=== PATIENT | female | born 1965 | race Caucasian/White ===

== ENCOUNTER → 2017-05-29 | Outpatient (CLI) | payer OTHER ==
[~2017-05-29] MED LIST: PANT40TA PO; SERT1TAB71 PO; SERT25TA PO
== END | disposition home or self-care (01) ==
LOC: C.PAPS 16:07
PROVIDERS: ATTEND Obstetrics & Gynecology
DX: Z12.4 Encounter for screening for malignant neoplasm of cervix (principal)

== ENCOUNTER → 2017-10-07 | Outpatient (CLI) | payer OTHER, BC ==
--- NOTE | 2017-10-07 13:01 | DIAGNOSTIC IMAGING REPORT ---
MRI OF THE RIGHT SHOULDER CLINICAL HISTORY: Right shoulder pain. Recent injury. COMPARISON STUDY: Radiographs of the right shoulder dated 10/01/2017. TECHNIQUE: MRI of the right shoulder was performed utilizing various T1 and T2 weighted sequences in the axial, sagittal, coronal planes. IV contrast was not administered for this examination. The examination is modestly degraded by motion artifact. FINDINGS: Rotator cuff: There is tendinopathy of the supraspinatous tendon. Mild partial thickness tearing is seen anteriorly and along the bursal surface. The majority of the fibers are intact. The infraspinatus tendon is preserved. The teres minor and subscapularis tendons are intact. There is no subacromial or subdeltoid bursal fluid. Minimal productive change is seen at the acromioclavicular joint. Biceps tendon: The long head of the biceps tendon is normal in signal intensity and located within the bicipital groove. The anchor is maintained. Labrum: Grossly intact. Shoulder joint: There is no joint effusion. The articular cartilage over the glenoid is well maintained. Normal marrow signal intensity is preserved of the visualized osseous structures. Musculature and soft tissues: The musculature of the shoulder is normal in bulk and signal intensity. No atrophy is seen. IMPRESSION: 1. No bony abnormality is identified. 2. There is tendinopathy of the supraspinatus tendon. Mild partial-thickness tearing is seen anteriorly and along the bursal surface. No full thickness tear is seen. 3. The remainder of the rotator cuff is intact. The long head of the biceps tendon is normal in appearance. Electronically signed by: Frederick Duncan M.D. 10/07/2017 1:00 PM Dictated Date/Time: 10/07/2017 12:53 PM
== END | disposition home or self-care (01) ==
LOC: C.MRIBC 11:36
PROVIDERS: ATTEND Orthopaedic Surgery
DX: M25.511 Pain in right shoulder (principal); M75.91 Shoulder lesion, unspecified, right shoulder

== ENCOUNTER 2025-03-15 10:13 | Observation (INO) ==
[2025-03-15] MEDS: SODIUM CHLORIDE 0.9% 1,000 ML IV SCH ×2 (11:03→17:52)
[2025-03-15] MEDS: cefTRIAXone SODIUM 2,000 MG/50 ML BAG IV STA (11:03)
[2025-03-15 11:14] LABS: Hematocrit (blood only) 36.5 % (37.0-47.0); Hemoglobin 12.3 g/dl (12.0-16.0); Immature Granulocytes # (auto) 0.07 K/uL (0.01-0.20); Immature Granulocytes % (auto) 0.4 %; Mean Corpuscular Hemoglobin 28.0 pg (25.0-34.0); Mean Corpuscular Volume 83.1 fL (80.0-100.0); Platelet Count 189 K/uL (130-400); RDW Standard Deviation 42.6 fL (36.4-46.3); Red Blood Count 4.39 M/uL (4.20-5.40); White Blood Count 15.66 K/ul (4.8-10.8)
[2025-03-15 11:18] LABS: Appearance Urine Clear (Clear); Bacteria Urine Automated 4+ (None Seen); Cast Urine Automated 0-2 /lpf (0-2); Epithelial Cell Urine Auto 0-2 /hpf (0-2); Glucose Urine UA Negative (Negative); RBC Urine Automated >20 /hpf (0-2); WBC Urine Automated 21-50 /hpf (0-5)
--- NOTE | 2025-03-15 11:23 | Emergency Department Note ---
Impression & Plan Sepsis, Pyelonephritis, Hypomagnesemia, TERESA (acute kidney injury) ED Provider Note NAME: KOMAL MACDONALD AGE: 59 SEX: F : 1965 ARRIVES VIA: Walk-In INFORMANT: Patient ED PROVIDER(S): Greg Resendez MD CHIEF COMPLAINT: Body aches, feverishness, burning with urination, referred PLAN: Disposition: Admit MEDICAL DECISION MAKING: The patient is a pleasant 59-year-old woman with a past medical history of hypertension, hyperlipidemia, GERD, anxiety who presents to the emergency department via walk-in, referred by urgent care for concern for urinary infection with low blood pressure. Patient reports having chills and sweats as well as headache, body aches and burning with urination. She denies cough, congestion, chest pain or shortness of breath. On evaluation the patient is fatigued appearing but no acute distress, afebrile with heart rate in the 130s and blood pressure 90s/60s and vital signs otherwise stable. She appears clinically dry. She exhibits mild lower abdominal discomfort without discrete tenderness. There is no guarding or rebound. EKG demonstrates sinus tachycardia without overt acute ischemia. Chest x-ray negative for acute cardiopulmonary process per my preliminary independent interpretation. WBC 15.6 K with neutrophilia but no left shift. Hemoglobin within normal limits. Platelets within normal limits. Chemistry without metabolic acidosis. Creatinine 1.8, consistent with patient's clinically dry appearance consistent with TERESA. Magnesium 1.4 with IV repletion provided. LFTs unremarkable. Initial high styptic troponin 7.3, within normal limits. Lipase is normal. Procalcitonin is elevated at 4.2 consistent with concern for sepsis secondary to urinary infection. UA is consistent with infection with positive nitrites, leuk esterase, WBCs and 4+ bacteria. CT of the head was negative for acute abnormalities. CT of the abdomen pelvis was performed and demonstrates mild stranding adjacent to the right kidney consistent with pyelonephritis given patient's presentation.. The patient was treated with IV fluid hydration with 30 cc/KG of normal saline with subsequent improvement in heart rate and stable blood pressure. Empiric antibiotic treatment issue with ceftriaxone as available records showed no history of resistant organisms. IV dexamethasone, diphenhydramine and Compazine administered for component of migraine. Patient agrees with plan for admission for further management. [facility] who will [facility] the patient for [facility]. Further management per admitting team. Triage Nursing notes reviewed and agree them. Prior/external medical records reviewed Vital Signs: reviewed Differential diagnosis: Renal colic, UTI, appendicitis, diverticulitis, mesenteric ischemia, aortic pathology, infections, inflammatory bowel disease, PUD, biliary pathology, as well as other pathologies. ER treatment provided: See below. Diagnostics interpreted by me: ECG: Sinus tachycardia, 119 bpm, no ectopy, no overt ST elevation or depression, QTc 413, QRS 72. Cardiac Monitoring: An order for continuous cardiac monitoring was placed and demonstrated sinus tachycardia, 119 bpm, no ectopy. Laboratory studies: See below Imaging studies: See below Consultation(s): [facility] who will [facility] the [facility] for [facility]. HPI: Per MDM. ROS: See above HPI for pertinent positives & negatives. A total of 10 systems reviewed and were otherwise negative. VITALS:See Below PHYSICAL EXAMINATION: GENERAL: Awake, alert, uncomfortable-appearing, in no distress, BMI 31.5. HENT: Normocephalic, atraumatic. Oropharynx with dry mucous membranes and otherwise unremarkable. EYES: Normal conjunctiva. Sclera non-icteric. NECK: Supple. No nuchal rigidity. FROM. No JVD. RESPIRATORY: Clear to auscultation. CARDIAC: Tachycardic rate, normal rhythm. Extremities warm and well perfused. Pulses equal. ABDOMEN: Soft, non-distended. Mild lower abdominal discomfort without discrete tenderness. There is no guarding or rebound. MUSCULOSKELETAL: Chest examination reveals no tenderness. The back is symmetrical on inspection without obvious abnormality. There is no CVA tenderness to palpation. No joint edema. LOWER EXTREMITIES: Calves are equal size bilaterally and non-tender. No edema. No discoloration. NEURO: Normal sensorium. No sensory or motor deficits noted. SKIN: No rash or jaundice noted. 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 Verified 03/15/25 14:17 Antibiotics) STOMACH EMPTY TEST Allergy Unknown WHEN ATE Uncoded 03/15/25 14:17 EGG SANDWICH RASH ON STOMACH Home Meds Home Medications Medication Instructions Recorded Confirmed atorvastatin 20 mg tablet 20 mg PO DAILY 06/21/20 03/15/25 [id number] 1 cap PO Q4 PRN Headache 06/21/20 03/15/25 50 mg-300 mg-40 mg capsule lisinopril 5 mg tablet 5 mg PO DAILY 06/21/20 03/15/25 sertraline 25 mg tablet 25 mg PO DAILY 06/21/20 03/15/25 sertraline 50 mg tablet 50 mg PO DAILY 06/21/20 03/15/25 allopurinol 100 mg tablet 200 mg PO DAILY 03/15/25 03/15/25 aspirin 81 mg tablet,delayed 81 mg PO DAILY 03/15/25 03/15/25 release cholecalciferol (vitamin D3) 25 25 mcg PO DAILY 03/15/25 03/15/25 mcg (1,000 unit) tablet (Vitamin D3) cyanocobalamin (vitamin B-12) 1,000 mcg PO DAILY 03/15/25 03/15/25 1,000 mcg tablet lorazepam 0.5 mg tablet 0.5 mg PO DAILY PRN Anxiety 03/15/25 03/15/25 pantoprazole 40 mg tablet,delayed 40 mg PO DAILYBB 03/15/25 03/15/25 release pregabalin 75 mg capsule 75 mg PO BID 03/15/25 03/15/25 Results & Data (ED) Vital Signs Vital Signs - 24 hr 03/15/25 10:25 03/15/25 10:42 03/15/25 10:54 Temperature 37.3 C Temperature Source Oral Pulse Rate 133 H 124 H 111 H Pulse Rate [Apical] Pulse Rate from SpO2 Sensor 123 H 121 H Respiratory Rate 20 22 21 Respiratory Effort / Characteristics Non-Labored Spontaneous Respiratory Depth Normal Respiratory Pattern Regular Blood Pressure 93/64 L Blood Pressure [Right Arm] Blood Pressure Mean 73 Blood Pressure Mean [Right Arm] Blood Pressure Position [Right Arm] Pulse Oximetry 97 94 95 Oxygen Delivery Method Room Air Sepsis Recent Fever Within 48 Hours Yes Sepsis New/Unexplained Change in Mental Status N/A Sepsis Action Taken by Nursing Physician Notified 03/15/25 11:06 03/15/25 11:08 03/15/25 11:08 Temperature Temperature Source Pulse Rate 118 H Pulse Rate [Apical] 112 H Pulse Rate from SpO2 Sensor 118 H Respiratory Rate 16 23 Respiratory Effort / Characteristics Non-Labored Spontaneous Respiratory Depth Normal Respiratory Pattern Regular Blood Pressure 89/71 L Blood Pressure [Right Arm] 89/71 L Blood Pressure Mean 75 Blood Pressure Mean [Right Arm] 77 Blood Pressure Position [Right Arm] Sitting Pulse Oximetry 98 97 Oxygen Delivery Method Room Air Sepsis Recent Fever Within 48 Hours Sepsis New/Unexplained Change in Mental Status Sepsis Action Taken by Nursing 03/15/25 11:13 03/15/25 11:18 03/15/25 11:30 Temperature Temperature Source Pulse Rate 116 H 113 H Pulse Rate [Apical] 114 H Pulse Rate from SpO2 Sensor 112 H Respiratory Rate 22 19 Respiratory Effort / Characteristics Non-Labored Spontaneous Respiratory Depth Normal Respiratory Pattern Regular Blood Pressure Blood Pressure [Right Arm] 125/80 Blood Pressure Mean Blood Pressure Mean [Right Arm] 95 Blood Pressure Position [Right Arm] Lying Pulse Oximetry 99 100 Oxygen Delivery Method Room Air Sepsis Recent Fever Within 48 Hours Sepsis New/Unexplained Change in Mental Status Sepsis Action Taken by Nursing 03/15/25 11:30 03/15/25 11:33 03/15/25 11:48 Temperature Temperature Source Pulse Rate 112 H 112 H Pulse Rate [Apical] Pulse Rate from SpO2 Sensor 113 H 112 H Respiratory Rate 16 Respiratory Effort / Characteristics Respiratory Depth Respiratory Pattern Blood Pressure 125/80 Blood Pressure [Right Arm] Blood Pressure Mean 94 Blood Pressure Mean [Right Arm] Blood Pressure Position [Right Arm] Pulse Oximetry 97 98 Oxygen Delivery Method Sepsis Recent Fever Within 48 Hours Sepsis New/Unexplained Change in Mental Status Sepsis Action Taken by Nursing 03/15/25 12:03 03/15/25 12:21 03/15/25 12:25 Temperature Temperature Source Pulse Rate 112 H 107 H Pulse Rate [Apical] Pulse Rate from SpO2 Sensor 111 H 107 H Respiratory Rate 22 23 Respiratory Effort / Characteristics Respiratory Depth Respiratory Pattern Blood Pressure 100/62 Blood Pressure [Right Arm] Blood Pressure Mean 74 Blood Pressure Mean [Right Arm] Blood Pressure Position [Right Arm] Pulse Oximetry 97 95 Oxygen Delivery Method Sepsis Recent Fever Within 48 Hours Sepsis New/Unexplained Change in Mental Status Sepsis Action Taken by Nursing 03/15/25 12:30 03/15/25 12:30 03/15/25 12:36 Temperature Temperature Source Pulse Rate 108 H Pulse Rate [Apical] 112 H Pulse Rate from SpO2 Sensor 108 H Respiratory Rate 24 18 Respiratory Effort / Characteristics Non-Labored Spontaneous Respiratory Depth Normal Respiratory Pattern Regular Blood Pressure 98/60 L Blood Pressure [Right Arm] 98/60 L Blood Pressure Mean 80 Blood Pressure Mean [Right Arm] 72 Blood Pressure Position [Right Arm] Lying Pulse Oximetry 95 97 Oxygen Delivery Method Room Air Sepsis Recent Fever Within 48 Hours Sepsis New/Unexplained Change in Mental Status Sepsis Action Taken by Nursing 03/15/25 12:38 03/15/25 12:57 03/15/25 13:00 Temperature Temperature Source Pulse Rate 110 H 109 H Pulse Rate [Apical] Pulse Rate from SpO2 Sensor 110 H 109 H Respiratory Rate 23 17 Respiratory Effort / Characteristics Respiratory Depth Respiratory Pattern Blood Pressure 108/73 98/79 L 102/60 Blood Pressure [Right Arm] Blood Pressure Mean 85 85 78 Blood Pressure Mean [Right Arm] Blood Pressure Position [Right Arm] Pulse Oximetry 96 96 Oxygen Delivery Method Sepsis Recent Fever Within 48 Hours Sepsis New/Unexplained Change in Mental Status Sepsis Action Taken by Nursing 03/15/25 13:03 03/15/25 13:18 Temperature Temperature Source Pulse Rate 107 H 105 H Pulse Rate [Apical] Pulse Rate from SpO2 Sensor 107 H 105 H Respiratory Rate 22 21 Respiratory Effort / Characteristics Respiratory Depth Respiratory Pattern Blood Pressure 102/60 106/73 Blood Pressure [Right Arm] Blood Pressure Mean 74 84 Blood Pressure Mean [Right Arm] Blood Pressure Position [Right Arm] Pulse Oximetry 94 94 Oxygen Delivery Method Sepsis Recent Fever Within 48 Hours Sepsis New/Unexplained Change in Mental Status Sepsis Action Taken by Nursing Laboratory Data Attestation: I reviewed the patient's lab results. 03/15/25 10:45 03/15/25 10:45 Lab Results 03/15/25 Range/Units 10:45 WBC 15.66 H (4.8-10.8) K/ul RBC 4.39 (4.20-5.40) M/uL Hgb 12.3 (12.0-16.0) g/dl Hct 36.5 L (37.0-47.0) % MCV 83.1 (80.0-100.0) fL MCH 28.0 (25.0-34.0) pg MCHC 33.7 (32.0-36.0) g/dL RDW Std Deviation 42.6 (36.4-46.3) fL RDW Coeff of Noemí 14.0 (11.5-14.5) % Plt Count 189 (130-400) K/uL MPV 10.9 (9.4-12.4) fL Immature Gran % (Auto) 0.4 % Neut % (Auto) 83.0 % Lymph % (Auto) 8.6 % [place] % (Auto) 7.3 % Eos % (Auto) 0.3 % Baso % (Auto) 0.4 % Neut # (Auto) 12.99 H (1.40-6.50) K/uL Lymph # (Auto) 1.35 (1.20-3.40) K/uL [place] # (Auto) 1.15 H (0.11-0.59) K/uL Eos # (Auto) 0.04 (0.00-0.50) K/uL Baso # (Auto) 0.06 (0.00-0.20) K/uL Immature Gran # (Auto) 0.07 (0.01-0.20) K/uL Sodium 138 (136-145) mmol/L Potassium 3.9 (3.5-5.1) mmol/L Chloride 105 (98-107) mmol/L Carbon Dioxide 24 (21-32) mmol/L Anion Gap 9 (3-11) BUN 25 H (6-23) mg/dl Creatinine 1.83 H (0.6-1.2) mg/dl Est Cr Clr Drug Dosing 26.7 ml/min eGFR 31.43 BUN/Creatinine Ratio 13.7 (10-20) Glucose 112 H (70-99(Fasting)) mg/dl Lactate 1.4 (0.4-2.0) mmol/L Calcium 9.1 (8.6-10.3) mg/dl Phosphorus 2.1 L (2.5-4.9) mg/dl Magnesium 1.4 L (1.7-2.4) mg/dl Total Bilirubin 0.9 (0.2-1.0) mg/dl Direct Bilirubin 0.2 (0-0.2) mg/dl AST 20 (13-39) U/L ALT 14 (7-52) U/L Alkaline Phosphatase 100 (34-104) U/L Troponin I High Sens 7.3 (0-14) pg/ml Total Protein 7.1 (6.0-8.3) gm/dl Albumin 4.0 (3.4-5.0) gm/dl Lipase 40 (11-82) U/L Procalcitonin 4.20 H (0-0.5) ng/ml Urine Color Dark Yellow Urine Appearance Clear (Clear) Urine pH 5.5 (4.5-7.5) Ur Specific [place] 1.015 (1.000-1.030) Urine Protein 3+ H (Negative) Urine Glucose (UA) Negative (Negative) Urine Ketones Negative (Negative) Urine Blood 3+ H (Negative) Urine Nitrite Positive A (Negative) Urine Bilirubin 1+ H (Negative) Urine Urobilinogen Negative (Negative) Ur Leukocyte Esterase 2+ H (Negative) Urine WBC (Auto) 21-50 H (0-5) /hpf Urine RBC (Auto) >20 H (0-2) /hpf U Hyaline Cast (Auto) 0-2 (0-2) /lpf U Epithel Cells (Auto) 0-2 (0-2) /hpf Urine Bacteria (Auto) 4+ H (None Seen) Urine Comment Administered Medications Heparin Sodium (Porcine) (Heparin Sod 5,000 Unit/0.5 Ml Vial) 5,000 units SQ Q8 SHAMA Stop: 04/14/25 21:59 Last Admin: 03/15/25 21:04 Dose: 5,000 units Documented By: KDL Ertapenem (Invanz 500mg) 500 mg in 5 mls @ 2 mls/min IV Q24H SHAMA Stop: 03/22/25 15:59 Last Admin: 03/15/25 17:15 Dose: 2 mls/min Documented By: AVSantino Sodium Chloride (Nss) 1,000 mls @ 125 mls/hr IV .Q8H SHAMA Stop: 03/18/25 17:06 Last Admin: 03/15/25 17:52 Dose: 125 mls/hr Documented By: KRISTIN Melatonin (Melatonin 3 Mg Tab) 6 mg PO HS PRN PRN Reason: Sleep Stop: 04/14/25 22:01 Last Admin: 03/15/25 22:06 Dose: 6 mg Documented By: FARHAD Pregabalin (Pregabalin 75 Mg Cap) 75 mg PO BID SHAMA Stop: 04/14/25 20:59 Last Admin: 03/15/25 21:04 Dose: 75 mg Documented By: FARHAD Discontinued Medications Dexamethasone Sodium Phosphate (DexamethasonePf 10 Mg/Ml Vial) 10 mg IV NOW ONE Stop: 03/15/25 11:23 Last Admin: 03/15/25 11:38 Dose: 10 mg Documented By: DIOGO Diphenhydramine HCl (Diphenhydramine 50 Mg/Ml Vial) 25 mg IV NOW STA Stop: 03/15/25 11:24 Last Admin: 03/15/25 11:38 Dose: 25 mg Documented By: DIOGO Sodium Chloride (Nss) 1,000 mls @ 999 mls/hr IV .Q1H1M SHAMA Stop: 03/15/25 12:45 Last Infusion: 03/15/25 16:01 Dose: Infused Documented By: Admin: 03/15/25 14:58 Dose: 999 mls/hr Documented By: Infusion: 03/15/25 12:04 Dose: Infused Documented By: Admin: 03/15/25 11:03 Dose: 999 mls/hr Documented By: FAITH Ceftriaxone Sodium (Rocephin) 2,000 mg in 50 mls @ 100 mls/hr IV NOW STA Stop: 03/15/25 11:06 Last Infusion: 03/15/25 12:29 Dose: Infused Documented By: Admin: 03/15/25 11:03 Dose: 100 mls/hr Documented By: FAITH Acetaminophen (Ofirmev) 1,000 mg in 100 mls @ 400 mls/hr IV NOW STA Stop: 03/15/25 11:36 Last Infusion: 03/15/25 12:29 Dose: Infused Documented By: Admin: 03/15/25 11:38 Dose: 400 mls/hr Documented By: DIOGO Prochlorperazine (Compazine) 1 mls @ 1 mls/min IV ONE ONE Stop: 03/15/25 11:24 Last Admin: 03/15/25 11:38 Dose: 1 mls/min Documented By: DIOGO Magnesium Sulfate/Dextrose (Magnesium Sulfate / D5w) 1 gm in 100 mls @ 100 mls/hr IV Q1H SHAMA Stop: 03/15/25 14:30 Last Infusion: 03/15/25 16:01 Dose: Infused Documented By: Admin: 03/15/25 14:58 Dose: 100 mls/hr Documented By: Infusion: 03/15/25 14:06 Dose: Infused Documented By: Admin: 03/15/25 13:06 Dose: 100 mls/hr Documented By: DIOGO Magnesium Sulfate/Dextrose (Magnesium Sulfate / D5w) 1 gm in 100 mls @ 50 mls/hr IV ONE ONE Stop: 03/15/25 19:06 Last Infusion: 03/15/25 20:30 Dose: Infused Documented By: Admin: 03/15/25 17:51 Dose: 50 mls/hr Documented By: NA Sodium Phosphate 21 mmol/ (Sodium Chloride) 507 mls @ 88 mls/hr IV ONE ONE Stop: 03/15/25 23:00 Last Admin: 03/15/25 19:43 Dose: Not Given Documented By: FARHAD Potassium Phosphate 15 mmol/ (Sodium Chloride) 255 mls @ 88 mls/hr IV ONE ONE Stop: 03/15/25 22:38 Last Admin: 03/15/25 20:32 Dose: 88 mls/hr Documented By: FARHAD Imaging Data Radiologist's Impression: Head CT 03/15/25 11:23 CT head/brain wo con CLINICAL HISTORY: sepsis, uriarte. TECHNIQUE: Multiple axial CT images of the head were obtained without contrast. A dose lowering technique was utilized adhering to the principles of ALARA. COMPARISON: None FINDINGS: No intracranial hemorrhage seen. No mass effect, midline shift, or hydrocephalus. No skull fracture seen. Visualized paranasal sinuses and mastoid air cells are clear. IMPRESSION: No acute findings. ACT 112: Negative or not required by law. The above report was generated using voice recognition software. It may contain grammatical, syntax or spelling errors. Electronically signed by: Rubin Gonsalez M.D. 03/15/2025 12:59 PM Abdomen/Pelvis CT 03/15/25 12:[address] WITHOUT CONTRAST CT DOSE: 1842.37 mGy.cm HISTORY: sepsis, uti TECHNIQUE: Multiaxial CT images of the abdomen and pelvis were performed without contrast. A dose lowering technique was utilized adhering to the principles of ALARA. COMPARISON STUDY: None FINDINGS: ABDOMEN: Liver, gallbladder, spleen, pancreas, and adrenal glands have an unremarkable noncontrast appearance. There is a small cyst at the right mid kidney. There is no hydronephrosis bilaterally. No renal or ureteral calculi seen. There is mild stranding adjacent to the right kidney. No abdominal aortic aneurysm. Pelvis: Uterus and adnexa are grossly unremarkable. Urinary bladder is nondistended. There is mild sigmoid diverticulosis. No acute diverticulitis. No bowel inflammation or obstruction. Normal appendix. No free fluid, free air, or abscess. No enlarged adenopathy. Osseous structures: No acute osseous findings. IMPRESSION: 1. Mild stranding adjacent to the right kidney can be normal variation or could represent an early right pyelonephritis. 2. No other acute findings seen. Otherwise as described. ACT 112: Negative or not required by law. The above report was generated using voice recognition software. It may contain grammatical, syntax or spelling errors. Electronically signed by: Rubin Gonsalez M.D. 03/15/2025 1:10 PM Discharge Plan Visit Data Chief Complaint: Referred by Doctor Stated Complaint: REFFERED BY [facility] Provider: Greg Resendez Discharge Problem: Sepsis, Pyelonephritis, Hypomagnesemia, TERESA (acute kidney injury) Patient Disposition: Admitted As Inpatient Condition: Serious Discharge Instructions Interventions: ED Discharge Assessment Last Done: 03/15/25 17:52 Discharge Problem: Sepsis Qualifiers: Sepsis type: sepsis due to unspecified organism Sepsis acute organ dysfunction status: with acute organ dysfunction Severe sepsis acute organ dysfunction type: acute renal failure Acute renal failure type: unspecified Severe sepsis shock status: without septic shock Qualified Code(s): A41.9 - Sepsis, unspecified organism
--- NOTE | 2025-03-15 11:25 | XRay Report ---
XR chest 1V portable CLINICAL HISTORY: Sepsis COMPARISON STUDY: 06/21/2020 FINDINGS: Heart size and pulmonary vasculature are normal. No consolidation or pleural effusion. No p neumothorax. IMPRESSION: No acute findings. ACT 112: Negative or not required by law. Electronically signed by: Rubin Gonsalez M.D. 03/15/2025 11:23 AM
[2025-03-15 11:35] LABS: Alanine Aminotransferase 14.0 U/L (7-52); Alkaline Phosphatase 100.0 U/L (34-104); Anion Gap 9.0 (3-11); Bilirubin,Total 0.9 mg/dl (0.2-1.0); Blood Urea Nitrogen 25.0 mg/dl (6-23); Calcium 9.1 mg/dl (8.6-10.3); Carbon Dioxide 24.0 mmol/L (21-32); Chloride 105.0 mmol/L (98-107); Creatinine Clr Calc Pharmacy 26.7 ml/min; Glucose 112.0 mg/dl (70-99(Fasting)); Lipase 40.0 U/L (11-82); Magnesium 1.4 mg/dl (1.7-2.4); Potassium 3.9 mmol/L (3.5-5.1); Sodium 138.0 mmol/L (136-145); Total Protein 7.1 gm/dl (6.0-8.3)
[2025-03-15] MEDS: PROCHLORPERAZINE 1 ML IV ONE (11:38)
[2025-03-15] MEDS: diphenhydrAMINE 50 MG/ML VIAL IV STA (11:38)
[2025-03-15] MEDS: dexAMETHasone**PF** 10 MG/ML VIAL IV ONE (11:38)
[2025-03-15] MEDS: ACETAMINOPHEN 1,000 MG/100 ML VIAL IV STA (11:38)
--- NOTE | 2025-03-15 13:01 | CT Scan Report ---
CT head/brain wo con CLINICAL HISTORY: sepsis, uriarte. TECHNIQUE: Multiple axial CT images of the head were obtained without contrast. A dose lowering tech nique was utilized adhering to the principles of ALARA. COMPARISON: None FINDINGS: No intracranial hemorrhage seen. No mass effect, midline shift, or hydrocephalus. No skull fracture seen. Visualized paranasal sinuses and mastoid air cells are clear. IMPRESSION: No acute findings. ACT 112: Negative or not required by law. The above report was generated using voice recognition software. It may contain grammatical, syntax o r spelling errors. Electronically signed by: Rubin Gonsalez M.D. 03/15/2025 12:59 PM
[2025-03-15] MEDS: MAGNESIUM SULFATE / D5W 1 GM/100 ML BAG IV SCH (13:06)
--- NOTE | 2025-03-15 13:11 | CT Scan Report ---
ABDOMEN AND PELVIS CT WITHOUT CONTRAST CT DOSE: 1842.37 mGy.cm HISTORY: sepsis, uti TECHNIQUE: Multiaxial CT images of the abdomen and pelvis were performed without contrast. A dose lo wering technique was utilized adhering to the principles of ALARA. COMPARISON STUDY: None FINDINGS: ABDOMEN: Liver, gallbladder, spleen, pancreas, and adrenal glands have an unremarkable noncontrast ap pearance. There is a small cyst at the right mid kidney. There is no hydronephrosis bilaterally. No r enal or ureteral calculi seen. There is mild stranding adjacent to the right kidney. No abdominal aor tic aneurysm. Pelvis: Uterus and adnexa are grossly unremarkable. Urinary bladder is nondistended. There is mild si gmoid diverticulosis. No acute diverticulitis. No bowel inflammation or obstruction. Normal appendix. No free fluid, free air, or abscess. No enlarged adenopathy. Osseous structures: No acute osseous findings. IMPRESSION: 1. Mild stranding adjacent to the right kidney can be normal variation or could represent an early ri ght pyelonephritis. 2. No other acute findings seen. Otherwise as described. ACT 112: Negative or not required by law. The above report was generated using voice recognition software. It may contain grammatical, syntax o r spelling errors. Electronically signed by: Rubin Gonsalez M.D. 03/15/2025 1:10 PM
--- NOTE | 2025-03-15 13:41 | Electrocardiogram Report ---
Test Reason : Blood Pressure : */* mmHG Vent. Rate : 119 BPM Atrial Rate : 119 BPM P-R Int : 130 ms QRS Dur : 72 ms QT Int : 294 ms P-R-T Axes : -21 -5 -22 degrees QTcB Int : 413 ms Sinus tachycardia Low voltage QRS Inferior infarct , age undetermined Poor R wave progression, consider anterior LA vs. lead placement vs. LVH Abnormal ECG When compared with ECG of 21-Jun-2020 21:09, Inferior infarct is now Present Nonspecific T wave abnormality, worse in Inferior leads Confirmed by Madhav Gray ([id number]) on 03/15/2025 1:41:17 PM Referred By: REFERRED SELF Confirmed By: Madhav Gray
--- NOTE | 2025-03-15 15:06 | History & Physical Report ---
Date of Service March 15, 2025 Assessment & Plan (1) Sepsis: Plan: 59-year-old female with past medical history significant for dyslipidemia, gouty arthropathy, gastroparesis, GERD, CKD stage IIIb, migraine variant, general anxiety disorder, presents with not feeling well and urinary symptoms since last Friday. Patient says since last Friday was having burning micturition, lower abdominal pain, not feeling well , fevers and chills. She has history of UTIs in the past. As she was not getting better she came to the ER today. She called PCP office and was prescribed Cipro but not picked up the medication yet. Having severe headaches, after Tylenol in the ER seems somewhat better. Has runny nose from sinusitis. No cough. No difficulty swallowing. No chest pain or shortness of breath. No nausea. Normal bowel movements. No rash. On presentation patient was tachycardic. Blood pressure soft. And mild temp spike. Currently hemodynamics improving. Sepsis Right pyelonephritis on CT scan Acute UTI On presentation tachycardic, soft blood pressure, fevers, WBC 15, procalcitonin 4.2, lactate 1.4 Received fluids and Rocephin As per [facility] urine cultures on 09/02/2023 showed E. coli which was resistant to Rocephin and cefazolin but sensitive to cefepime Urine cultures from 05/11/2024 shows pansensitive E. coli Will place on Invanz for now until final cultures available-adjust Invanz dosing per renal function Continue with IV fluids Close monitor hemodynamics Monitoring med/telemetry TERESA on CKD stage IIIb Baseline creatinine 1.3-1.6 Presented with creatinine of 1.8 Will hold lisinopril Avoid nephrotoxic agents Follow repeat labs Hypomagnesium and hypophosphatemia Will replace Will follow labs History of gouty arthropathy Continue allopurinol History of migraine On Fioricet as needed at home which will will be held for now IV Tylenol as needed Hyperlipidemia On statin Hypertension Holding lisinopril Blood pressure soft Will monitor Abnormal EKG Asymptomatic Initial troponin negative Will follow serial cardiac enzymes and repeat EKG GERD On Protonix General Anxiety disorder On Zoloft Ativan as needed DVT prophylaxis Heparin subcu Disposition Med/telemetry Full code. History of Present Illness Chief Complaint: Illness Primary Care Provider: Mio Turner MD 59-year-old female with past medical history significant for dyslipidemia, gouty arthropathy, gastroparesis, GERD, CKD stage IIIb, migraine variant, general anxiety disorder, presents with not feeling well and urinary symptoms since last Friday. Patient says since last Friday was having burning micturition, lower abdominal pain, not feeling well , fevers and chills. She has history of UTIs in the past. As she was not getting better she came to the ER today. She called PCP office and was prescribed Cipro but not picked up the medication yet. Having severe headaches, after Tylenol in the ER seems somewhat better. Has runny nose and attributes to sinuses. No cough. No difficulty swallowing. No chest pain or shortness of breath. No nausea. Normal bowel movements. No rash. On presentation patient was tachycardic. Blood pressure soft. And mild temp spike. Currently hemodynamics improving. Past medical history. As mentioned above. Past surgical history. . Colonoscopy or EGD. EGD with biopsy. EGD with endoscopic ultrasound. Gastrocnemius recession. IR biopsy. Ligation oviducts. Removal of deep implant. Renal biopsy. Social history. . No smoking. Alcohol rarely. No drug use. Family history. Maternal aunt had breast cancer in 70s. Father has COPD. Diabetes. Skin cancer. Mother has skin cancer. Brother has diabetes. Brother had cancer. Brother had Graves' disease thyroidectomy. Maternal aunt had ovarian cancer. Maternal aunt had renal failure. Maternal aunt had lung cancer. Maternal uncle had lung cancer. Allergies Allergy/AdvReac Type Severity Reaction Status Date / Time Sulfa (Sulfonamide Allergy Unknown . Verified 03/15/25 14:17 Antibiotics) STOMACH EMPTY TEST Allergy Unknown WHEN ATE Uncoded 03/15/25 14:17 EGG SANDWICH RASH ON STOMACH Home Medications Medication Instructions Recorded Confirmed Type atorvastatin 20 mg tablet 20 mg PO DAILY 06/21/20 03/15/25 History wooqasctjh-[id number]-meaqilef 1 cap PO Q4 PRN Headache 06/21/20 03/15/25 History 50 mg-300 mg-40 mg capsule lisinopril 5 mg tablet 5 mg PO DAILY 06/21/20 03/15/25 History sertraline 25 mg tablet 25 mg PO DAILY 06/21/20 03/15/25 History sertraline 50 mg tablet 50 mg PO DAILY 06/21/20 03/15/25 History allopurinol 100 mg tablet 200 mg PO DAILY 03/15/25 03/15/25 History aspirin 81 mg tablet,delayed 81 mg PO DAILY 03/15/25 03/15/25 History release cholecalciferol (vitamin D3) 25 25 mcg PO DAILY 03/15/25 03/15/25 History mcg (1,000 unit) tablet (Vitamin D3) cyanocobalamin (vitamin B-12) 1,000 mcg PO DAILY 03/15/25 03/15/25 History 1,000 mcg tablet lorazepam 0.5 mg tablet 0.5 mg PO DAILY PRN Anxiety 03/15/25 03/15/25 History pantoprazole 40 mg tablet,delayed 40 mg PO DAILYBB 03/15/25 03/15/25 History release pregabalin 75 mg capsule 75 mg PO BID 03/15/25 03/15/25 History Past Med/Surg History Problem List (Updated 03/15/25 @ 15:09 by Stephon Morris MD) Sepsis Neck pain Pneumonia due to 2019-nCoV (Acute) Kidney disease (Acute) Medical History Kidney disease Social History Smoking Status: Never smoker Preferred Language: Azeri marital status: Feels Safe at Home: Yes Review of Systems Review of Systems: All systems reviewed & are unremarkable except as noted in HPI & below Physical Exam Physical Exam: General- Not in acute distress Head- atraumatic Eyes- PERRL. ENT- oropharynx clear Neck- supple, no JVD. Lungs- clear to auscultation no wheezing or crackles. Heart- regular rhythm; no murmur, no gallop. Abdomen- normal bowel sounds, soft, mild diffuse discomfort, no rigidity, no distension Extremities- no pretibial edema, no erythema seen Neuro- alert, oriented PERRL, no facial palsy; no dysarthria; moves extremities Results & Data Results & Data Vital Signs (Past 12 Hours) Vital Signs Temp Pulse Pulse Resp BP BP Pulse Ox 03/15/25 13:18 105 H 21 106/73 94 03/15/25 13:03 107 H 22 102/60 94 03/15/25 13:00 102/60 03/15/25 12:57 109 H 17 98/79 L 96 03/15/25 12:38 110 H 23 108/73 96 03/15/25 12:36 112 H 18 98/60 L 97 03/15/25 12:30 108 H 24 95 03/15/25 12:30 98/60 L 03/15/25 12:25 100/62 03/15/25 12:21 107 H 23 95 03/15/25 12:03 112 H 22 97 03/15/25 11:48 112 H 16 98 03/15/25 11:33 112 H 97 03/15/25 11:30 125/80 03/15/25 11:30 114 H 19 125/80 100 03/15/25 11:18 113 H 22 99 03/15/25 11:13 116 H 03/15/25 11:08 112 H 23 89/71 L 97 03/15/25 11:08 89/71 L 03/15/25 11:06 118 H 16 98 03/15/25 10:54 111 H 21 95 03/15/25 10:42 124 H 22 94 03/15/25 10:25 37.3 C 133 H 20 93/64 L 97 O2 Del Method 03/15/25 13:18 03/15/25 13:03 03/15/25 13:00 03/15/25 12:57 03/15/25 12:38 03/15/25 12:36 Room Air 03/15/25 12:30 03/15/25 12:30 03/15/25 12:25 03/15/25 12:21 03/15/25 12:03 03/15/25 11:48 03/15/25 11:33 03/15/25 11:30 03/15/25 11:30 Room Air 03/15/25 11:18 03/15/25 11:13 03/15/25 11:08 Room Air 03/15/25 11:08 03/15/25 11:06 03/15/25 10:54 03/15/25 10:42 03/15/25 10:25 Room Air Diagnostic Findings Laboratory Results WBC 15.66 K/ul (4.8-10.8) H 03/15/25 10:45 RBC 4.39 M/uL (4.20-5.40) 03/15/25 10:45 Hgb 12.3 g/dl (12.0-16.0) 03/15/25 10:45 Hct 36.5 % (37.0-47.0) L 03/15/25 10:45 MCV 83.1 fL (80.0-100.0) 03/15/25 10:45 MCH 28.0 pg (25.0-34.0) 03/15/25 10:45 MCHC 33.7 g/dL (32.0-36.0) 03/15/25 10:45 RDW Std Deviation 42.6 fL (36.4-46.3) 03/15/25 10:45 RDW Coeff of Noemí 14.0 % (11.5-14.5) 03/15/25 10:45 Plt Count 189 K/uL (130-400) 03/15/25 10:45 MPV 10.9 fL (9.4-12.4) 03/15/25 10:45 Immature Gran % (Auto) 0.4 % 03/15/25 10:45 Neut % (Auto) 83.0 % 03/15/25 10:45 Lymph % (Auto) 8.6 % 03/15/25 10:45 [place] % (Auto) 7.3 % 03/15/25 10:45 Eos % (Auto) 0.3 % 03/15/25 10:45 Baso % (Auto) 0.4 % 03/15/25 10:45 Neut # (Auto) 12.99 K/uL (1.40-6.50) H 03/15/25 10:45 Lymph # (Auto) 1.35 K/uL (1.20-3.40) 03/15/25 10:45 [place] # (Auto) 1.15 K/uL (0.11-0.59) H 03/15/25 10:45 Eos # (Auto) 0.04 K/uL (0.00-0.50) 03/15/25 10:45 Baso # (Auto) 0.06 K/uL (0.00-0.20) 03/15/25 10:45 Immature Gran # (Auto) 0.07 K/uL (0.01-0.20) 03/15/25 10:45 Sodium 138 mmol/L (136-145) 03/15/25 10:45 Potassium 3.9 mmol/L (3.5-5.1) 03/15/25 10:45 Chloride 105 mmol/L (98-107) 03/15/25 10:45 Carbon Dioxide 24 mmol/L (21-32) 03/15/25 10:45 Anion Gap 9 (3-11) 03/15/25 10:45 BUN 25 mg/dl (6-23) H 03/15/25 10:45 Creatinine 1.83 mg/dl (0.6-1.2) H 03/15/25 10:45 Est Cr Clr Drug Dosing 26.7 ml/min 03/15/25 10:45 eGFR 31.43 03/15/25 10:45 BUN/Creatinine Ratio 13.7 (10-20) 03/15/25 10:45 Glucose 112 mg/dl (70-99(Fasting)) H 03/15/25 10:45 Lactate 1.4 mmol/L (0.4-2.0) 03/15/25 10:45 Calcium 9.1 mg/dl (8.6-10.3) 03/15/25 10:45 Phosphorus 2.1 mg/dl (2.5-4.9) L 03/15/25 10:45 Magnesium 1.4 mg/dl (1.7-2.4) L 03/15/25 10:45 Total Bilirubin 0.9 mg/dl (0.2-1.0) 03/15/25 10:45 Direct Bilirubin 0.2 mg/dl (0-0.2) 03/15/25 10:45 AST 20 U/L (13-39) 03/15/25 10:45 ALT 14 U/L (7-52) 03/15/25 10:45 Alkaline Phosphatase 100 U/L (34-104) 03/15/25 10:45 Troponin I High Sens 7.3 pg/ml (0-14) 03/15/25 10:45 Total Protein 7.1 gm/dl (6.0-8.3) 03/15/25 10:45 Albumin 4.0 gm/dl (3.4-5.0) 03/15/25 10:45 Lipase 40 U/L (11-82) 03/15/25 10:45 Procalcitonin 4.20 ng/ml (0-0.5) H 03/15/25 10:45 Urine Color Dark Yellow 03/15/25 10:45 Urine Appearance Clear (Clear) 03/15/25 10:45 Urine pH 5.5 (4.5-7.5) 03/15/25 10:45 Ur Specific [place] 1.015 (1.000-1.030) 03/15/25 10:45 Urine Protein 3+ (Negative) H 03/15/25 10:45 Urine Glucose (UA) Negative (Negative) 03/15/25 10:45 Urine Ketones Negative (Negative) 03/15/25 10:45 Urine Blood 3+ (Negative) H 03/15/25 10:45 Urine Nitrite Positive (Negative) A 03/15/25 10:45 Urine Bilirubin 1+ (Negative) H 03/15/25 10:45 Urine Urobilinogen Negative (Negative) 03/15/25 10:45 Ur Leukocyte Esterase 2+ (Negative) H 03/15/25 10:45 Urine WBC (Auto) 21-50 /hpf (0-5) H 03/15/25 10:45 Urine RBC (Auto) >20 /hpf (0-2) H 03/15/25 10:45 U Hyaline Cast (Auto) 0-2 /lpf (0-2) 03/15/25 10:45 U Epithel Cells (Auto) 0-2 /hpf (0-2) 03/15/25 10:45 Urine Bacteria (Auto) 4+ (None Seen) H 03/15/25 10:45 Urine Comment 03/15/25 10:45 Impressions Chest X-Ray 03/15/25 10:36 XR chest 1V portable CLINICAL HISTORY: Sepsis COMPARISON STUDY: 06/21/2020 FINDINGS: Heart size and pulmonary vasculature are normal. No consolidation or pleural effusion. No pneumothorax. IMPRESSION: No acute findings. ACT 112: Negative or not required by law. Electronically signed by: Rubin Gonsalez M.D. 03/15/2025 11:[address] 03/15/25 11:23 CT head/brain wo con CLINICAL HISTORY: sepsis, uriarte. TECHNIQUE: Multiple axial CT images of the head were obtained without contrast. A dose lowering technique was utilized adhering to the principles of ALARA. COMPARISON: None FINDINGS: No intracranial hemorrhage seen. No mass effect, midline shift, or hydrocephalus. No skull fracture seen. Visualized paranasal sinuses and mastoid air cells are clear. IMPRESSION: No acute findings. ACT 112: Negative or not required by law. The above report was generated using voice recognition software. It may contain grammatical, syntax or spelling errors. Electronically signed by: Rubin Gonsalez M.D. 03/15/2025 12:59 PM Abdomen/Pelvis CT 03/15/25 12:[address] WITHOUT CONTRAST CT DOSE: 1842.37 mGy.cm HISTORY: sepsis, uti TECHNIQUE: Multiaxial CT images of the abdomen and pelvis were performed without contrast. A dose lowering technique was utilized adhering to the principles of ALARA. COMPARISON STUDY: None FINDINGS: ABDOMEN: Liver, gallbladder, spleen, pancreas, and adrenal glands have an unremarkable noncontrast appearance. There is a small cyst at the right mid kidney. There is no hydronephrosis bilaterally. No renal or ureteral calculi seen. There is mild stranding adjacent to the right kidney. No abdominal aortic aneurysm. Pelvis: Uterus and adnexa are grossly unremarkable. Urinary bladder is nondistended. There is mild sigmoid diverticulosis. No acute diverticulitis. No bowel inflammation or obstruction. Normal appendix. No free fluid, free air, or abscess. No enlarged adenopathy. Osseous structures: No acute osseous findings. IMPRESSION: 1. Mild stranding adjacent to the right kidney can be normal variation or could represent an early right pyelonephritis. 2. No other acute findings seen. Otherwise as described. ACT 112: Negative or not required by law. The above report was generated using voice recognition software. It may contain grammatical, syntax or spelling errors. Electronically signed by: Rubin Gonsalez M.D. 03/15/2025 1:10 PM ECG Additional Comments: ECG. Sinus tach rate of 119. Poor R wave progression. Nonspecific T wave abnormality in inferior leads. QTc 413. Code Status & VTE Plan VTE Prophylaxis Plan VTE Prophylaxis will be ordered: Yes
[2025-03-15] MEDS ORDERED: SODIUM PHOSPHATE 3 MMOL/1 ML INFUSION IV STA (17:07)
[2025-03-15] MEDS: ERTAPENEM 500MG 500 MG/5 ML SYR IV SCH (17:15)
[2025-03-15] MEDS: MAGNESIUM SULFATE / D5W 1 GM/100 ML BAG IV ONE (17:51)
[2025-03-15] MEDS ORDERED: POTASSIUM PHOS 3 MMOL/1 ML INFUSION IV STA (19:36)
[2025-03-15] MEDS: SODIUM PHOSPHATE 21 MMOL in SODIUM CHLORIDE 0.9% 500 ML IV ONE (19:43)
[2025-03-15] MEDS: POTASSIUM PHOSPHATE 15 MMOL in SODIUM CHLORIDE 0.9% 250 ML IV ONE (20:32)
[2025-03-15] MEDS: HEPARIN SOD 5,000 UNIT/0.5 ML VIAL SQ SCH (21:04)
[2025-03-15] MEDS: PREGABALIN 75 MG CAP PO SCH (21:04)
[2025-03-15] MEDS: MELATONIN 3 MG TAB PO PRN (22:06)
[2025-03-15 23:32] LABS: A calco-baum cmplx NotReported Not Detected (NotDetected); Bact fragilis Not Reported Not Detected (NotDetected); Blood Culture Id Panel See PCR Comment (NotDetected); C auris Not Reported Not Detected (NotDetected); CTX-M Resistant Gene Not Detected (NotDetected); Calbicans Not Reported Not Detected (NotDetected); Candida glabrata Not Reported Not Detected (NotDetected); Candida krusei Not Reported Not Detected (NotDetected); Cneoformans/gatti Not Reported Not Detected (NotDetected); Cparapsilosis Not Reported Not Detected (NotDetected); Ctropicalis Not Reported Not Detected (NotDetected); E cloacae compx Not Reported Not Detected (NotDetected); Efaecalis Not Reported Not Detected (NotDetected); Efaecium Not Reported Not Detected (NotDetected); Enterobacterales DETECTED (NotDetected); Enterobacterales Not Reported DETECTED (NotDetected); Escherichia coli Not Reported DETECTED (NotDetected); H influenzae Not Reported Not Detected (NotDetected); IMP Resistant Gene Not Detected (NotDetected); K aerogenes Not Reported Not Detected (NotDetected); KPC Resistant Gene Not Detected (NotDetected); Koxytoca Not Reported Not Detected (NotDetected); Kpneumoniae grp Not Reported Not Detected (NotDetected); Lmonocyt Not Reported Not Detected (NotDetected); N meningitidis Not Reported Not Detected (NotDetected); NDM Resistant Gene Not Detected (NotDetected); OXA 48 Like Resistant Gene Not Detected (NotDetected); P aeruginosa Not Reported Not Detected (NotDetected); Proteus spp Not Reported Not Detected (NotDetected); Salmonella spp Not Reported Not Detected (NotDetected); Staph lugdunensis Not Reported Not Detected (NotDetected); Staph spp. Not Reported Not Detected (NotDetected); Staphaureus Not Reported Not Detected (NotDetected); Staphepi Not Reported Not Detected (NotDetected); Stenmaltophilia Not Reported Not Detected (NotDetected); Strep agal(GrpB) Not Reported Not Detected (NotDetected); Strep pneum Not Reported Not Detected (NotDetected); Strep pyog (GrpA) Not Reported Not Detected (NotDetected); Strep spp Not Reported Not Detected (NotDetected); VIM Resistant Gene Not Detected (NotDetected); mcr-1 Colistin Resistant Gene Not Detected (NotDetected)
[2025-03-16 06:16] LABS: Hematocrit (blood only) 29.6 % (37.0-47.0); Hemoglobin 10.0 g/dl (12.0-16.0); Immature Granulocytes # (auto) 0.11 K/uL (0.01-0.20); Immature Granulocytes % (auto) 0.7 %; Mean Corpuscular Hemoglobin 28.3 pg (25.0-34.0); Mean Corpuscular Volume 83.9 fL (80.0-100.0); Platelet Count 162 K/uL (130-400); RDW Standard Deviation 42.7 fL (36.4-46.3); Red Blood Count 3.53 M/uL (4.20-5.40); White Blood Count 15.27 K/ul (4.8-10.8)
[2025-03-16 06:30] LABS: Anion Gap 6.0 (3-11); Blood Urea Nitrogen 27.0 mg/dl (6-23); Calcium 8.1 mg/dl (8.6-10.3); Carbon Dioxide 20.0 mmol/L (21-32); Chloride 112.0 mmol/L (98-107); Creatinine Clr Calc Pharmacy 38.1 ml/min; Glucose 115.0 mg/dl (70-99(Fasting)); Magnesium 2.0 mg/dl (1.7-2.4); Potassium 4.0 mmol/L (3.5-5.1); Sodium 138.0 mmol/L (136-145)
--- NOTE | 2025-03-16 07:27 | Hospitalist Progress Note ---
Date of Service March 16, 2025 Assessment & Plan (1) Sepsis: Plan: Ms. Gaming is a 59-year-old female with past medical history significant for dyslipidemia, gouty arthropathy, gastroparesis, GERD, CKD stage IIIb, migraine variant, general anxiety disorder, presents with not feeling well and urinary symptoms since last Friday and admitted for sepsis 2/2 right pyelonephritis. #Sepsis 2/2 acute complicated UTI #Right pyelonephritis on CT scan #GNB bacteremia On presentation tachycardic, soft blood pressure, fevers, WBC 15, procalcitonin 4.2, lactate 1.4 s/p ctx transitioned to Cefepime q8 hrs given history of ctx resistance follow up cultures Continue with IV fluids Close monitor hemodynamics Monitoring med/telemetry #TERESA on CKD stage IIIb Baseline creatinine 1.3-1.6 Presented with creatinine of 1.8, now down to 1.3 Will hold lisinopril, resume as able Avoid nephrotoxic agents Follow repeat labs #Hypomagnesium #Hypophosphatemia Will replace Will follow labs #gouty arthropathy Continue allopurinol #migraine On Fioricet as needed at home which will will be held for now IV Tylenol as needed #Hyperlipidemia On statin #Hypertension Holding lisinopril Blood pressure soft Will monitor #Abnormal EKG Asymptomatic Initial troponin negative Will follow serial cardiac enzymes and repeat EKG 3GERD On Protonix #General Anxiety disorder On Zoloft Ativan as needed DVT prophylaxis Heparin subcu Disposition Med/telemetry Full code. Admission and Anticipated Discharge Date Admission Date: March 15, 2025 Subjective Reports feeling week at this time but much improved since admission still with some dysuria and pressure Denies any vomiting, but some nausea Physical Exam Constitutional: WD/WN, vitals as above Cardiovascular: RRR, no murmur, no edema Gastrointestinal (Abdomen): normal bowel sounds, soft, nontender, no hepatosplenomegaly suprapubic discomfort Results & Data Results & Data Vital Signs (Past 12 Hours) Vital Signs Temp Pulse Pulse Resp BP Pulse Ox O2 Del Method 03/16/25 02:32 36.6 C 69 18 101/65 94 Room Air 03/15/25 22:42 36.6 C 87 18 107/73 96 Room Air 03/15/25 22:11 85 03/15/25 19:32 36.6 C 83 18 101/66 95 Room Air (1) Sepsis Acute renal failure type: unspecified Sepsis acute organ dysfunction status: with acute organ dysfunction Sepsis type: sepsis due to unspecified organism Severe sepsis acute organ dysfunction type: acute renal failure Severe sepsis shock status: without septic shock Qualified Code(s): A41.9 - Sepsis, unspe cified organism; R65.20 - Severe sepsis without septic shock; N17.9 - Acute kidney failure, unspecified
[2025-03-16] MEDS ORDERED: POTASSIUM PHOS 3 MMOL/1 ML INFUSION IV STA (07:50)
[2025-03-16] MEDS: SERTRALINE HCL 50 MG TABLET PO SCH ×2 (08:10→08:11)
[2025-03-16] MEDS: ATORVASTATIN 20 MG TAB PO SCH (08:10)
[2025-03-16] MEDS: CHOLECALCIFEROL 25 MCG (1000 UNITS) TAB PO SCH (08:10)
[2025-03-16] MEDS: ASPIRIN 81 MG ECTAB PO SCH (08:11)
[2025-03-16] MEDS: ACETAMINOPHEN 1,000 MG/100 ML VIAL IV PRN (08:12)
[2025-03-16] MEDS: CYANOCOBALAMIN (B-12) 500 MCG TABLET PO SCH (08:19)
[2025-03-16] MEDS ORDERED: ZOLPIDEM TARTRATE 5 MG TAB PO PRN (08:31)
[2025-03-16] MEDS: POTASSIUM PHOSPHATE 6 MMOL in SODIUM CHLORIDE 0.9% 250 ML IV ONE (08:42)
[2025-03-16] MEDS: ONDANSETRON INJ 2 MG/ML 2 ML VIAL IV STA (08:46)
[2025-03-16] MEDS: CEFEPIME 2000MG 2,000 MG/20 ML SYR IV SCH (08:46)
[2025-03-16] MEDS ORDERED: predniSONE 20 MG TAB PO SCH (09:00)
--- NOTE | 2025-03-16 13:09 | Electrocardiogram Report ---
Test Reason : Blood Pressure : */* mmHG Vent. Rate : 82 BPM Atrial Rate : 82 BPM P-R Int : 136 ms QRS Dur : 78 ms QT Int : 376 ms P-R-T Axes : -2 58 32 degrees QTcB Int : 439 ms Normal sinus rhythm with 1st degree A-V block Low voltage QRS Borderline ECG When compared with ECG of 15-Mar-2025 10:58, Minimal criteria for Anterior infarct are no longer Present Criteria for Inferior infarct are no longer Present Nonspecific T wave abnormality, improved in Inferior leads Confirmed by Madhav Gray ([id number]) on 03/16/2025 1:08:55 PM Referred By: REFERRED SELF Confirmed By: Madhav Gray
[2025-03-16] MEDS: BUTALBITAL/ACETAMIN/CAFFEINE TAB PO STA (14:59)
[2025-03-17] MEDS ORDERED: POLYETHYLENE (MIRALAX) 17 GM PACK PO PRN (02:56)
[2025-03-17] MEDS: POLYETHYLENE (MIRALAX) 17 GM PACK PO STA (03:12)
[2025-03-17 08:02] LABS: Hematocrit (blood only) 29.6 % (37.0-47.0); Hemoglobin 10.1 g/dl (12.0-16.0); Mean Corpuscular Hemoglobin 28.7 pg (25.0-34.0); Mean Corpuscular Volume 84.1 fL (80.0-100.0); Platelet Count 170 K/uL (130-400); RDW Standard Deviation 44.0 fL (36.4-46.3); Red Blood Count 3.52 M/uL (4.20-5.40); White Blood Count 8.67 K/ul (4.8-10.8)
[2025-03-17 08:33] LABS: Anion Gap 8.0 (3-11); Blood Urea Nitrogen 27.0 mg/dl (6-23); Calcium 8.4 mg/dl (8.6-10.3); Carbon Dioxide 18.0 mmol/L (21-32); Chloride 111.0 mmol/L (98-107); Creatinine Clr Calc Pharmacy 30.0 ml/min; Glucose 98.0 mg/dl (70-99(Fasting)); Magnesium 1.7 mg/dl (1.7-2.4); Potassium 4.1 mmol/L (3.5-5.1); Sodium 137.0 mmol/L (136-145)
[2025-03-17] MEDS: ONDANSETRON INJ 2 MG/ML 2 ML VIAL IV PRN (12:04)
--- NOTE | 2025-03-17 12:11 | Hospitalist Progress Note ---
Date of Service March 17, 2025 Assessment & Plan (1) Sepsis: Plan: Ms. Gaming is a 59-year-old female with past medical history significant for dyslipidemia, gouty arthropathy, gastroparesis, GERD, CKD stage IIIb, migraine variant, general anxiety disorder, presents with not feeling well and urinary symptoms since last Friday and admitted for sepsis 2/2 right pyelonephritis. noted to be still hypotensive--eating well and improving. s/p 500cc bolus now #Sepsis 2/2 acute complicated UTI #Right pyelonephritis on CT scan #GNB bacteremia On presentation tachycardic, soft blood pressure, fevers, WBC 15, procalcitonin 4.2, lactate 1.4 s/p ctx, cefepime Susceptibilities returned -Transitioned to Cipro 750mg bid for bacteremia dosing Continue with IV fluids Close monitor hemodynamics encourage PCP follow up with given sxs feel 2/2 s/p intercourse--discussed following up with PCP for vaginal estrogen #TERESA on CKD stage IIIb Baseline creatinine 1.3-1.6 Presented with creatinine of 1.8, now down to 1.3 Will hold lisinopril, resume as able Avoid nephrotoxic agents Follow repeat labs ensure stable in am and will be clear for d/c as blood pressure stabilzes #Hypomagnesium #Hypophosphatemia Will replace Will follow labs #gouty arthropathy Continue allopurinol #migraine On Fioricet as needed at home which will will be held for now IV Tylenol as needed #Hyperlipidemia On statin #Hypertension Holding lisinopril Blood pressure soft Will monitor #Abnormal EKG Asymptomatic Initial troponin negative stable at this time #GERD On Protonix #General Anxiety disorder On Zoloft Ativan as needed DVT prophylaxis Heparin subcu Disposition Med/telemetry Full code. Admission and Anticipated Discharge Date Admission Date: March 15, 2025 Subjective reports continued improved, still some weakness feels some of these utis are always s/p intercourse--discussed following up with PCP for vaginal estrogen reports improvement in urinary symptoms Physical Exam Constitutional: WD/WN, vitals as above Respiratory: normal respiratory effort, lungs clear to auscultation Cardiovascular: RRR, no murmur, no edema Musculoskeletal: no cyanosis or clubbing, extremities motor strength 5/5 Results & Data Results & Data Vital Signs (Past 12 Hours) Vital Signs Temp Pulse Pulse Resp BP Pulse Ox O2 Del Method 03/17/25 11:25 36.7 C 72 18 95/62 L 97 Room Air 03/17/25 08:48 Room Air 03/17/25 07:54 88 03/17/25 07:17 36.7 C 85 18 111/69 94 Room Air 03/17/25 02:33 36.7 C 95 H 16 124/73 96 Room Air Laboratory Results Short CBC 03/17/25 Range/Units 07:13 WBC 8.67 (4.8-10.8) K/ul Hgb 10.1 L (12.0-16.0) g/dl Hct 29.6 L (37.0-47.0) % Plt Count 170 (130-400) K/uL BMP 03/17/25 07:13 Sodium 137 Potassium 4.1 Chloride 111 H Carbon Dioxide 18 L BUN 27 H Creatinine 1.67 H D Glucose 98 Calcium 8.4 L Medications Administered Home Medications Medication Instructions Recorded Confirmed Last Taken atorvastatin 20 mg tablet 20 mg PO DAILY 06/21/20 03/15/25 03/14/25 ljabgcwweb-[id number]-flrlxsuj 1 cap PO Q4 PRN Headache 06/21/20 03/15/25 03/14/25 50 mg-300 mg-40 mg capsule lisinopril 5 mg tablet 5 mg PO DAILY 06/21/20 03/15/25 03/14/25 sertraline 25 mg tablet 25 mg PO DAILY 06/21/20 03/15/25 03/14/25 sertraline 50 mg tablet 50 mg PO DAILY 06/21/20 03/15/25 03/14/25 allopurinol 100 mg tablet 200 mg PO DAILY 03/15/25 03/15/25 Unknown aspirin 81 mg tablet,delayed 81 mg PO DAILY 03/15/25 03/15/25 03/14/25 release cholecalciferol (vitamin D3) 25 25 mcg PO DAILY 03/15/25 03/15/25 03/14/25 mcg (1,000 unit) tablet (Vitamin D3) cyanocobalamin (vitamin B-12) 1,000 mcg PO DAILY 03/15/25 03/15/25 Unknown 1,000 mcg tablet lorazepam 0.5 mg tablet 0.5 mg PO DAILY PRN Anxiety 03/15/25 03/15/25 Unknown pantoprazole 40 mg tablet,delayed 40 mg PO DAILYBB 03/15/25 03/15/25 03/14/25 release pregabalin 75 mg capsule 75 mg PO BID 03/15/25 03/15/25 Unknown Active Medications Generic Name Dose Route Start Last Admin Trade Name Tannerq PRN Reason Stop Dose Admin Allopurinol 200 mg 03/16/25 09:00 03/17/25 08:16 Allopurinol 100 Mg Tab PO 04/15/25 08:59 200 mg DAILY SHAMA Administration Aspirin 81 mg 03/16/25 09:00 03/17/25 08:16 Aspirin 81 Mg Ectab PO 04/15/25 08:59 81 mg DAILY SHAMA Administration Atorvastatin Calcium 20 mg 03/16/25 09:00 03/17/25 08:16 Atorvastatin 20 Mg Tab PO 04/15/25 08:59 20 mg DAILY SHAMA Administration Cyanocobalamin 1,000 mcg 03/16/25 09:00 03/17/25 08:17 Cyanocobalamin (B-12) 500 Mcg Tablet PO 04/15/25 08:59 1,000 mcg DAILY SHAMA Administration Heparin Sodium (Porcine) 5,000 units 03/15/25 22:00 03/17/25 06:12 Heparin Sod 5,000 Unit/0.5 Ml Vial SQ 04/14/25 21:59 5,000 units Q8 SHAMA Administration Acetaminophen 1,000 mg in 100 mls @ 400 mls/hr 03/15/25 17:07 03/17/25 06:50 Ofirmev IV 03/18/25 17:06 Infused Q8H PRN Infusion Pain or Fever Melatonin 6 mg 03/15/25 22:02 03/16/25 21:05 Melatonin 3 Mg Tab PO 04/14/25 22:01 6 mg HS PRN Administration Sleep Ondansetron HCl 4 mg 03/16/25 08:24 03/17/25 12:04 Ondansetron Inj 2 Mg/Ml 2 Ml Vial IV 04/15/25 08:23 4 mg Q6H PRN Administration Nausea And Vomiting Pantoprazole Sodium 40 mg 03/16/25 06:30 03/17/25 06:12 Pantoprazole 40 Mg Tab PO 04/15/25 06:29 40 mg DAILYBB SHAMA Administration Pregabalin 75 mg 03/15/25 21:00 03/17/25 08:17 Pregabalin 75 Mg Cap PO 04/14/25 20:59 75 mg BID SHAMA Administration Sertraline HCl 25 mg 03/16/25 09:00 03/17/25 08:17 Sertraline Hcl 50 Mg Tablet PO 04/15/25 08:59 25 mg DAILY SHAMA Administration Sertraline HCl 50 mg 03/16/25 09:00 03/17/25 08:17 Sertraline Hcl 50 Mg Tablet PO 04/15/25 08:59 50 mg DAILY SHAMA Administration Vitamin D 25 mcg 03/16/25 09:00 03/17/25 08:16 Cholecalciferol 25 Mcg (1000 Units) Tab PO 04/15/25 08:59 25 mcg DAILY SHAMA Administration (1) Sepsis Acute renal failure type: unspecified Sepsis acute organ dysfunction status: with acute organ dysfunction Sepsis type: sepsis due to unspecified organism Severe sepsis acute organ dysfunction type: acute renal failure Severe sepsis shock status: without septic shock Qualified Code(s): A41.9 - Sepsis, unspecified organism; R65.20 - Severe sepsis without septic shock; N17.9 - Acute kidney failure, unspecified
[2025-03-17] MEDS: CIPROFLOXACIN 250 MG TAB PO SCH (12:22)
[2025-03-17] MEDS: SODIUM CHLORIDE 0.9% 500 ML IV ONE (12:26)
[2025-03-17] MEDS: LORazepam 0.5 MG TAB PO PRN (20:08)
[2025-03-18 09:34] VITALS: TEMP 97.9
[2025-03-18 09:37] LABS: Hematocrit (blood only) 30.3 % (37.0-47.0); Hemoglobin 10.4 g/dl (12.0-16.0); Immature Granulocytes # (auto) 0.02 K/uL (0.01-0.20); Immature Granulocytes % (auto) 0.3 %; Mean Corpuscular Hemoglobin 28.3 pg (25.0-34.0); Mean Corpuscular Volume 82.6 fL (80.0-100.0); Platelet Count 169 K/uL (130-400); RDW Standard Deviation 42.4 fL (36.4-46.3); Red Blood Count 3.67 M/uL (4.20-5.40); White Blood Count 6.26 K/ul (4.8-10.8)
[2025-03-18 09:58] LABS: Anion Gap 8.0 (3-11); Blood Urea Nitrogen 22.0 mg/dl (6-23); Calcium 8.9 mg/dl (8.6-10.3); Carbon Dioxide 21.0 mmol/L (21-32); Chloride 109.0 mmol/L (98-107); Creatinine Clr Calc Pharmacy 31.7 ml/min; Glucose 128.0 mg/dl (70-99(Fasting)); Magnesium 1.6 mg/dl (1.7-2.4); Potassium 4.2 mmol/L (3.5-5.1); Sodium 138.0 mmol/L (136-145)
[2025-03-18 10:55] VITALS: RESP 18
[2025-03-18 15:07] VITALS: O2SAT 97
[2025-03-18 16:26] VITALS: BP 132/84; PULSE 83
--- NOTE | 2025-03-18 18:51 | Discharge Summary ---
Discharge Summary Date of Service March 18, 2025 delayed entry date of service noted above Principal Dx & Hospital Course #1 = Principal Diagnosis (1) Sepsis: Ms. Gaming is a 59-year-old female with past medical history significant for dyslipidemia, gouty arthropathy, gastroparesis, GERD, CKD stage IIIb, migraine variant, general anxiety disorder, presents with not feeling well and urinary symptoms since last Friday and admitted for sepsis 2/2 right pyelonephritis. noted to be still hypotensive--eating well and improving. s/p 500cc bolus now #Sepsis 2/2 acute complicated UTI #Right pyelonephritis on CT scan #GNB bacteremia On presentation tachycardic, soft blood pressure, fevers, WBC 15, procalcitonin 4.2, lactate 1.4 s/p ctx, cefepime Susceptibilities returned -Transitioned to Cipro 750mg bid for bacteremia dosing encourage PCP follow up with given sxs feel 2/2 s/p intercourse--discussed following up with PCP for vaginal estrogen #TERESA on CKD stage IIIb Baseline creatinine 1.3-1.6 Presented with creatinine of 1.8, now down to 1.3 Will hold lisinopril, resume as able -- BP stable off Lisinoopril resume Lisinopril accordingly for CKD upon follow up with PCP #Hypomagnesium #Hypophosphatemia - replaced ff up levels as outpatient #gouty arthropathy Continue allopurinol #migraine On Fioricet as needed at home #Hyperlipidemia On statin #Hypertension Lisinopril held due to marginal BPs re-evaluate as outpatient #Abnormal EKG Asymptomatic Initial troponin negative stable at this time #GERD On Protonix #General Anxiety disorder On Zoloft Ativan as needed DVT prophylaxis Heparin subcu Disposition d/c home ff up with PCP in 1 week Notes For Next Care Provider Medication Changes From Visit per medical reconciliation Admission HPI Per Admitting Provider 59-year-old female with past medical history significant for dyslipidemia, gouty arthropathy, gastroparesis, GERD, CKD stage IIIb, migraine variant, general anxiety disorder, presents with not feeling well and urinary symptoms since last Friday. Patient says since last Friday was having burning micturition, lower abdominal pain, not feeling well , fevers and chills. She has history of UTIs in the past. As she was not getting better she came to the ER today. She called PCP office and was prescribed Cipro but not picked up the medication yet. Having severe headaches, after Tylenol in the ER seems somewhat better. Has runny nose and attributes to sinuses. No cough. No difficulty swallowing. No chest pain or shortness of breath. No nausea. Normal bowel movements. No rash. On presentation patient was tachycardic. Blood pressure soft. And mild temp spike. Currently hemodynamics improving. Past medical history. As mentioned above. Past surgical history. . Colonoscopy or EGD. EGD with biopsy. EGD with endoscopic ultrasound. Gastrocnemius recession. IR biopsy. Ligation oviducts. Removal of deep implant. Renal biopsy. Social history. . No smoking. Alcohol rarely. No drug use. Family history. Maternal aunt had breast cancer in 70s. Father has COPD. Diabetes. Skin cancer. Mother has skin cancer. Brother has diabetes. Brother had cancer. Brother had Graves' disease thyroidectomy. Maternal aunt had ovarian cancer. Maternal aunt had renal failure. Maternal aunt had lung cancer. Maternal uncle had lung cancer. Admission Exam Per Admitting Provider General- Not in acute distress Head- atraumatic Eyes- PERRL. ENT- oropharynx clear Neck- supple, no JVD. Lungs- clear to auscultation no wheezing or crackles. Heart- regular rhythm; no murmur, no gallop. Abdomen- normal bowel sounds, soft, mild diffuse discomfort, no rigidity, no distension Extremities- no pretibial edema, no erythema seen Neuro- alert, oriented PERRL, no facial palsy; no dysarthria; moves extremities Discharge Exam General- oriented x 3, not in distress, speaks in sentences with no effort or accessory muscle use Eyes- anicteric Neck- no JVD Lungs- clear breath sounds bilaterally, no rales/wheezes Heart- normal rate, regular rhythm; no murmurs Abdomen- normal bowel sounds, nondistended, soft, nontender Extremities- no pretibial edema, no calf tenderness Neuro- alert, oriented x 3; no gross focal neurologic deficits Skin- warm & dry Updated Medication List Medication Instructions Recorded Confirmed Type atorvastatin 20 mg tablet 20 mg PO DAILY 06/21/20 03/15/25 History ekbmvvapiq-atpybryeewrkq-dhlslypd 1 cap PO Q4 PRN Headache 06/21/20 03/15/25 History 50 mg-300 mg-40 mg capsule sertraline 25 mg tablet 25 mg PO DAILY 06/21/20 03/15/25 History sertraline 50 mg tablet 50 mg PO DAILY 06/21/20 03/15/25 History allopurinol 100 mg tablet 200 mg PO DAILY 03/15/25 03/15/25 History aspirin 81 mg tablet,delayed 81 mg PO DAILY 03/15/25 03/15/25 History release cholecalciferol (vitamin D3) 25 25 mcg PO DAILY 03/15/25 03/15/25 History mcg (1,000 unit) tablet (Vitamin D3) cyanocobalamin (vitamin B-12) 1,000 mcg PO DAILY 03/15/25 03/15/25 History 1,000 mcg tablet lorazepam 0.5 mg tablet 0.5 mg PO DAILY PRN Anxiety 03/15/25 03/15/25 History pantoprazole 40 mg tablet,delayed 40 mg PO DAILYBB 03/15/25 03/15/25 History release pregabalin 75 mg capsule 75 mg PO BID 03/15/25 03/15/25 History Lactobacillus acidoph-L.bulgaricus 1 tab PO DAILY 30 days #30 tabs 03/18/25 Rx 1 million cell tablet (Floranex) ciprofloxacin HCl 250 mg tablet 750 mg (3 x 250 mg) PO Q12H 10 03/18/25 Rx days #60 tabs magnesium oxide 500 mg PO BID 3 days #6 tabs 03/18/25 Rx Hospital Stay Data Consultations 03/15/25 14:00 ED Decision to Admit Stat Diagnostic Imagining Performed Laboratory Results WBC 6.26 K/ul (4.8-10.8) 03/18/25 09:08 RBC 3.67 M/uL (4.20-5.40) L 03/18/25 09:08 Hgb 10.4 g/dl (12.0-16.0) L 03/18/25 09:08 Hct 30.3 % (37.0-47.0) L 03/18/25 09:08 MCV 82.6 fL (80.0-100.0) 03/18/25 09:08 MCH 28.3 pg (25.0-34.0) 03/18/25 09:08 MCHC 34.3 g/dL (32.0-36.0) 03/18/25 09:08 RDW Std Deviation 42.4 fL (36.4-46.3) 03/18/25 09:08 RDW Coeff of Noemí 14.0 % (11.5-14.5) 03/18/25 09:08 Plt Count 169 K/uL (130-400) 03/18/25 09:08 MPV 10.8 fL (9.4-12.4) 03/18/25 09:08 Immature Gran % (Auto) 0.3 % 03/18/25 09:08 Neut % (Auto) 54.0 % 03/18/25 09:08 Lymph % (Auto) 28.1 % 03/18/25 09:08 Randall % (Auto) 10.9 % 03/18/25 09:08 Eos % (Auto) 5.9 % 03/18/25 09:08 Baso % (Auto) 0.8 % 03/18/25 09:08 Neut # (Auto) 3.38 K/uL (1.40-6.50) 03/18/25 09:08 Lymph # (Auto) 1.76 K/uL (1.20-3.40) 03/18/25 09:08 Randall # (Auto) 0.68 K/uL (0.11-0.59) H 03/18/25 09:08 Eos # (Auto) 0.37 K/uL (0.00-0.50) 03/18/25 09:08 Baso # (Auto) 0.05 K/uL (0.00-0.20) 03/18/25 09:08 Immature Gran # (Auto) 0.02 K/uL (0.01-0.20) 03/18/25 09:08 Sodium 138 mmol/L (136-145) 03/18/25 09:08 Potassium 4.2 mmol/L (3.5-5.1) 03/18/25 09:08 Chloride 109 mmol/L (98-107) H 03/18/25 09:08 Carbon Dioxide 21 mmol/L (21-32) 03/18/25 09:08 Anion Gap 8 (3-11) 03/18/25 09:08 BUN 22 mg/dl (6-23) 03/18/25 09:08 Creatinine 1.56 mg/dl (0.6-1.2) H 03/18/25 09:08 Est Cr Clr Drug Dosing 31.7 ml/min 03/18/25 09:08 eGFR 38.06 03/18/25 09:08 BUN/Creatinine Ratio 14.1 (10-20) 03/18/25 09:08 Glucose 128 mg/dl (70-99(Fasting)) H 03/18/25 09:08 Lactate 1.4 mmol/L (0.4-2.0) 03/15/25 10:45 Calcium 8.9 mg/dl (8.6-10.3) 03/18/25 09:08 Phosphorus 3.5 mg/dl (2.5-4.9) 03/18/25 09:08 Magnesium 1.6 mg/dl (1.7-2.4) L 03/18/25 09:08 Total Bilirubin 0.9 mg/dl (0.2-1.0) 03/15/25 10:45 Direct Bilirubin 0.2 mg/dl (0-0.2) 03/15/25 10:45 AST 20 U/L (13-39) 03/15/25 10:45 ALT 14 U/L (7-52) 03/15/25 10:45 Alkaline Phosphatase 100 U/L (34-104) 03/15/25 10:45 Troponin I High Sens 4.5 pg/ml (0-14) 03/15/25 22:33 Total Protein 7.1 gm/dl (6.0-8.3) 03/15/25 10:45 Albumin 4.0 gm/dl (3.4-5.0) 03/15/25 10:45 Lipase 40 U/L (11-82) 03/15/25 10:45 Procalcitonin 4.20 ng/ml (0-0.5) H 03/15/25 10:45 Urine Color Dark Yellow 03/15/25 10:45 Urine Appearance Clear (Clear) 03/15/25 10:45 Urine pH 5.5 (4.5-7.5) 03/15/25 10:45 Ur Specific [place] 1.015 (1.000-1.030) 03/15/25 10:45 Urine Protein 3+ (Negative) H 03/15/25 10:45 Urine Glucose (UA) Negative (Negative) 03/15/25 10:45 Urine Ketones Negative (Negative) 03/15/25 10:45 Urine Blood 3+ (Negative) H 03/15/25 10:45 Urine Nitrite Positive (Negative) A 03/15/25 10:45 Urine Bilirubin 1+ (Negative) H 03/15/25 10:45 Urine Urobilinogen Negative (Negative) 03/15/25 10:45 Ur Leukocyte Esterase 2+ (Negative) H 03/15/25 10:45 Urine WBC (Auto) 21-50 /hpf (0-5) H 03/15/25 10:45 Urine RBC (Auto) >20 /hpf (0-2) H 03/15/25 10:45 U Hyaline Cast (Auto) 0-2 /lpf (0-2) 03/15/25 10:45 U Epithel Cells (Auto) 0-2 /hpf (0-2) 03/15/25 10:45 Urine Bacteria (Auto) 4+ (None Seen) H 03/15/25 10:45 Urine Comment 03/15/25 10:45 Enterobacterales (PCR) DETECTED (NotDetected) A 03/15/25 11:08 E. coli (PCR) DETECTED (NotDetected) A 03/15/25 11:08 mcr-1 Colistin Res Gene PCR Not Detected (NotDetected) 03/15/25 11:08 blaIMP Car res Gene PCR Not Detected (NotDetected) 03/15/25 11:08 KPC-Carbap Res Gene PCR Not Detected (NotDetected) 03/15/25 11:08 blaNDM Car Res Gene PCR Not Detected (NotDetected) 03/15/25 11:08 OXA-48 Carbapenem Resis Gene (PCR) Not Detected (NotDetected) 03/15/25 11:08 blaVIM Car Res Gene PCR Not Detected (NotDetected) 03/15/25 11:08 CTX-M Gene Resistance (PCR) Not Detected (NotDetected) 03/15/25 11:08 Bld Cult ID Panel PCR See PCR Comment (NotDetected) 03/15/25 11:08 Impressions Chest X-Ray 03/15/25 10:36 XR chest 1V portable CLINICAL HISTORY: Sepsis COMPARISON STUDY: 06/21/2020 FINDINGS: Heart size and pulmonary vasculature are normal. No consolidation or pleural effusion. No pneumothorax. IMPRESSION: No acute findings. ACT 112: Negative or not required by law. Electronically signed by: Rubin Gonsalez M.D. 03/15/2025 11:[address] 03/15/25 11:23 CT head/brain wo con CLINICAL HISTORY: sepsis, uriarte. TECHNIQUE: Multiple axial CT images of the head were obtained without contrast. A dose lowering technique was utilized adhering to the principles of ALARA. COMPARISON: None FINDINGS: No intracranial hemorrhage seen. No mass effect, midline shift, or hydrocephalus. No skull fracture seen. Visualized paranasal sinuses and mastoid air cells are clear. IMPRESSION: No acute findings. ACT 112: Negative or not required by law. The above report was generated using voice recognition software. It may contain grammatical, syntax or spelling errors. Electronically signed by: Rubin Gonsalez M.D. 03/15/2025 12:59 PM Abdomen/Pelvis CT 03/15/25 12:[address] WITHOUT CONTRAST CT DOSE: 1842.37 mGy.cm HISTORY: sepsis, uti TECHNIQUE: Multiaxial CT images of the abdomen and pelvis were performed without contrast. A dose lowering technique was utilized adhering to the principles of ALARA. COMPARISON STUDY: None FINDINGS: ABDOMEN: Liver, gallbladder, spleen, pancreas, and adrenal glands have an unremarkable noncontrast appearance. There is a small cyst at the right mid kidney. There is no hydronephrosis bilaterally. No renal or ureteral calculi seen. There is mild stranding adjacent to the right kidney. No abdominal aortic aneurysm. Pelvis: Uterus and adnexa are grossly unremarkable. Urinary bladder is nondistended. There is mild sigmoid diverticulosis. No acute diverticulitis. No bowel inflammation or obstruction. Normal appendix. No free fluid, free air, or abscess. No enlarged adenopathy. Osseous structures: No acute osseous findings. IMPRESSION: 1. Mild stranding adjacent to the right kidney can be normal variation or could represent an early right pyelonephritis. 2. No other acute findings seen. Otherwise as described. ACT 112: Negative or not required by law. The above report was generated using voice recognition software. It may contain grammatical, syntax or spelling errors. Electronically signed by: Rubin Gonsalez M.D. 03/15/2025 1:10 PM Pending Results Patient Have Any Pending Studies at Discharge: No Discharge Instructions Given to Patient (Per Discharging Provider) PLEASE REFER TO YOUR NEW MEDICATION LIST AND FOLLOW INSTRUCTIONS CAREFULLY. YOUR NEW MEDICATIONS INCLUDE: Ciprofloxacin- antibiotic for urinary tract infection and bloodstream infection Probiotic- to prevent diarrhea from antibiotics Magnesium supplement Please drink plenty of water daily. PLEASE CALL YOUR PRIMARY CARE PHYSICIAN OR RETURN TO THE ER IF WITH WORSENING OF SYMPTOMS, INCLUDING fever/chills, abdominal/flank/back pain, nausea/vomiting, weakness, etc FOLLOW UP WITH PRIMARY CARE PHYSICIAN OUTLINED ABOVE. Total Time Total Time Spent Total Time Spent (In Minutes): 50 minutes
== END 2025-03-18 16:50 | disposition home or self-care (01) | DRG 872 ==
LOC: ED 10:13 → SUATTDRO 14:55 → INTOOBSV 14:55 → EDINP 14:55 → 2S 17:52